=== PATIENT | female | born 1960 | race Caucasian/White ===

== ENCOUNTER 2016-11-15 19:08 | Emergency (ER) | payer SELFPAY ==
[2016-11-15 20:27] VITALS: BP 123/78
--- NOTE | 2016-11-15 20:58 | RAD ---
INDICATION: Right foot injury COMPARISON: None TECHNIQUE: AP, lateral, and oblique views were obtained. FINDINGS: There is no acute fracture or dislocation. There is no significant soft tissue swelling. There is a plantar calcaneal spur IMPRESSION: NO ACUTE BONY FINDINGS.
--- NOTE | 2016-11-15 20:59 | RAD ---
Amended report to correct indication. INDICATION: Right ankle injury COMPARISON: None TECHNIQUE: AP, lateral, and oblique views were obtained. FINDINGS: There is no acute fracture or dislocation. There is no significant soft tissue swelling. There is a plantar calcaneal spur. IMPRESSION: NO ACUTE BONY FINDINGS. MTDD
--- NOTE | 2016-11-15 21:36 | UC ---
Lower Extremity/Ankle HPI - HPI Summary HPI Summary: STEPPED ON PENCIL IN HALLWAY THIS AFTER NOON, ROLLED RIGHT ANKLE, SINCE INJURY PAIN IN FOOT AND ANKLE UNABLE TO BEAR WEIGHT WITHOUT PAIN. NO PREVIOUS INJURY - History of Current Complaint Chief Complaint: UCLowerExtremity Stated Complaint: RIGHT FOOT INJURY WC Time Seen by Provider: 11/15/16 20:10 Hx Obtained From: Patient, Family/[employer]ic [employer] Onset/Duration: Sudden Onset, Lasting Hours, Still Present, Worse Since - PROGRESSIVE SINCE INJURY Severity Initially: Mild Severity Currently: Moderate Aggravating Factor(s): Standing, Ambulation Able to Bear Weight: No - Risk Factors Gout Risk Factors: Negative DVT Risk Factors: Negative Septic Arthritis Risk Factor: Negative - Allergies/Home Medications Allergies/Adverse Reactions: Allergies Allergy/AdvReac Type Severity Reaction Status Date / Time Amoxicillin [From Augmentin] Allergy Unknown Verified 11/15/16 20:30 Reaction Details Cefaclor [From Ceclor] Allergy Unknown Verified 01/13/15 15:21 Reaction Details Ciprofloxacin [From Cipro] Allergy Unknown Verified 01/13/15 15:21 Reaction Details Clavulanic Acid Allergy Unknown Verified 11/15/16 20:30 [From Augmentin] Reaction Details Codeine Allergy Unknown Verified 11/15/16 20:30 Reaction Details Erythromycin Allergy Unknown Verified 11/15/16 20:30 Reaction Details Levofloxacin [From Levaquin] Allergy Unknown Verified 01/13/15 15:21 Reaction Details Moxifloxacin [From Avelox] Allergy Unknown Verified 01/13/15 15:21 Reaction Details Paroxetine [From Paxil] Allergy Unknown Verified 01/13/15 15:21 Reaction Details Penicillins Allergy Unknown Verified 01/13/15 15:21 Reaction Details Sulfa Antibiotics Allergy Unknown Verified 01/13/15 15:21 Reaction Details Home Medications: Home Medications Hydroxychloroquine TAB* [Plaquenil TAB*] 200 mg PO DAILY 11/15/16 [History Confirmed 11/15/16] Levothyroxine TAB* [Synthroid TAB*] 50 mcg PO DAILY 11/15/16 [History Confirmed 11/15/16] Ztfhxrloeds-[id number]-[id number] Bl [Uramit Mb 118 mg] 1 cap PO DAILY 11/15/16 [ History Confirmed 11/15/16] PMH/Surg Hx/FS Hx/Imm Hx Previously Healthy: Yes - Surgical History Surgical History: Yes Surgery Procedure, Year, and Place: Hysterectomy 2002. Umbilical hernia repair 1968. T&A 1969. 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 right shoulder repair. Bladder susp and repair - Family History Known Family History: Negative: Other - NO JOINT LAXITY - Social History Occupation: Employed Full-time Lives: With Family Alcohol Use: Occasionally Substance Use Type: None Smoking Status (MU): Never Smoked Tobacco Review of Systems Constitutional: Negative Skin: Negative Eyes: Negative ENT: Negative Respiratory: Negative Cardiovascular: Negative Gastrointestinal: Negative Genitourinary: Negative Motor: Negative Neurovascular: Negative Musculoskeletal: Arthralgia, Myalgia Neurological: Negative Psychological: Negative Is Patient Immunocompromised?: No All Other Systems Reviewed And Are Negative: Yes Physical Exam Triage Information Reviewed: Yes Appearance: Well-Appearing, No Pain Distress, Well-Nourished Vital Signs: Initial Vital Signs Temp 96.9 F 11/15/16 20:23 Pulse 89 11/15/16 20:23 Resp 16 11/15/16 20:23 BP 123/78 11/15/16 20:23 Pulse Ox 97 11/15/16 20:23 Vital Signs Reviewed: Yes Eye Exam: Normal ENT Exam: Normal ENT: Positive: Normal ENT inspection, Hearing grossly normal, TMs normal Dental Exam: Normal Neck exam: Normal Neck: Positive: Supple, Nontender Respiratory Exam: Normal Respiratory: Positive: Chest non-tender, Lungs clear, Normal breath sounds Cardiovascular Exam: Normal Cardiovascular: Positive: RRR, No Murmur, Pulses Normal, Brisk Capillary Refill Abdominal Exam: Normal Musculoskeletal: Positive: Strength Limited @ - RIGHT ANKLE FOOT, ROM Limited @ - RIGHT ANKLE FOOT, Edema @ - RIGHT LATERAL ANKLE Neurological Exam: Normal Psychological Exam: Normal Skin Exam: Normal Lower Extremity Course/Dx - Differential Dx/Diagnosis Differential Diagnosis/HQI/PQRI: Fracture (Closed), Sprain, Strain Provider Diagnoses: RIGHT ANKLE SPRAIN, RIGHT FOOT SPRAIN Discharge - Discharge Plan Condition: Stable Disposition: HOME Patient Education Materials: Ankle Sprain (ED), Foot Sprain (ED) Forms: *Work Release Referrals: [facility] [Outside] Danny Menchaca MD [Primary Care Provider] - Ash Knutson MD [Medical Doctor] - Additional Instructions: PHYSICAL THERAPY REFERRAL: You have been prescribed physical therapy. Treatments may include stretching, exercise, application of heat or cold, and other modalities. After an injury, PT can reduce swelling and pain. In recovery, PT is used to restore mobility and strength. Your specific treatment goals are: ___X__ Reduction of Swelling (EGS, US, ice as needed) ___X__ Pain Reduction (EGS, US, ice as needed) ___X__ TENS Pack Fitting and Instruction Wound Hydrotherapy ___X__ Preservation of Mobility ___X__ Synagogue of Mobility ___X__ Strength Synagogue ___X__ Work or Sports Hardening This instruction sheet also serves as your PHYSICAL THERAPY REFERRAL! Please take it with you to the therapist, so he/she will be aware of your diagnosis and treatment plan. You may see the physical therapist of your choice for these treatments, but may wish to check with your insurance to be sure the provider you select is covered. It's important to see the doctor to whom you have been referred for follow up.
== END 2016-11-15 22:00 | disposition home or self-care (01) ==
LOC: UCCORT 19:08
DX: S93.401A Sprain of unspecified ligament of right ankle, initial encounter (principal); S93.601A Unspecified sprain of right foot, initial encounter; X50.1XXA Overexertion from prolonged static or awkward postures, initial encounter; Y93.9 Activity, unspecified; Y92.9 Unspecified place or not applicable; Y99.0 Civilian activity done for income or pay; Z90.710 Acquired absence of both cervix and uterus; Z88.1 Allergy status to other antibiotic agents; Z88.5 Allergy status to narcotic agent; Z88.0 Allergy status to penicillin; Z88.7 Allergy status to serum and vaccine
CPT/HCPCS: 99213; G0463

== ENCOUNTER 2016-12-24 17:13 | Emergency (ER) | payer BC ==
[2016-12-24 18:21] VITALS: BP 131/85
--- NOTE | 2016-12-24 18:27 | UC ---
Laceration HPI - HPI Summary HPI Summary: 56 year old female presents with right little finger laceration secondary to a knife. - History Of Current Complaint Chief Complaint: UCLaceration Stated Complaint: LACERATION FINGER Time Seen by Provider: 12/24/16 18:24 Hx Obtained From: Patient Laceration Location: Hand - right little finger Mechanism Of Injury: Sharp Trauma Onset/Duration: Sudden Onset Severity: Moderate Pain Scale Used: 0-10 Numeric - 5 - Allergies/Home Medications Allergies/Adverse Reactions: Allergies Allergy/AdvReac Type Severity Reaction Status Date / Time Amoxicillin [From Augmentin] Allergy Unknown Verified 12/24/16 18:21 Reaction Details Cefaclor [From Ceclor] Allergy Unknown Verified 12/24/16 18:21 Reaction Details Ciprofloxacin [From Cipro] Allergy Unknown Verified 12/24/16 18:21 Reaction Details Clavulanic Acid Allergy Unknown Verified 12/24/16 18:21 [From Augmentin] Reaction Details Codeine Allergy Unknown Verified 12/24/16 18:21 Reaction Details Erythromycin Allergy Unknown Verified 12/24/16 18:21 Reaction Details Levofloxacin [From Levaquin] Allergy Unknown Verified 12/24/16 18:21 Reaction Details Moxifloxacin [From Avelox] Allergy Unknown Verified 12/24/16 18:21 Reaction Details Paroxetine [From Paxil] Allergy Unknown Verified 12/24/16 18:21 Reaction Details Penicillins Allergy Unknown Verified 12/24/16 18:21 Reaction Details Sulfa Antibiotics Allergy Unknown Verified 12/24/16 18:21 Reaction Details PMH/Surg Hx/FS Hx/Imm Hx Previously Healthy: Yes - Surgical History Surgical History: Yes Surgery Procedure, Year, and Place: Hysterectomy 2002. Umbilical hernia repair 1968. T&A 1969. 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 right shoulder repair. Bladder susp and repair - Family History Known Family History: Negative: Other - NO JOINT LAXITY - Social History Alcohol Use: Occasionally Substance Use Type: None Smoking Status (MU): Never Smoked Tobacco Review of Systems Constitutional: Negative Skin: Other - right little finger laceration Eyes: Negative ENT: Negative Respiratory: Negative Cardiovascular: Negative Gastrointestinal: Negative Genitourinary: Negative Motor: Negative Neurovascular: Negative Musculoskeletal: Negative Neurological: Negative Psychological: Negative All Other Systems Reviewed And Are Negative: Yes Physical Exam Triage Information Reviewed: Yes Vital Signs: Initial Vital Signs Temp 36.4 C 12/24/16 18:17 Pulse 86 12/24/16 18:17 Resp 16 12/24/16 18:17 BP 131/85 12/24/16 18:17 Pulse Ox 99 12/24/16 18:17 Eye Exam: Normal ENT Exam: Normal Dental Exam: Normal Neck exam: Normal Neck: Positive: 1 Respiratory Exam: Normal Cardiovascular Exam: Normal Abdominal Exam: Normal Musculoskeletal Exam: Normal Neurological Exam: Normal Psychological Exam: Normal Skin: Positive: Other - right little finger laceration Laceration Repair - Laceration Repair 1 Description: Linear Laceration Size After Repair: Length (cm) - 2.5 - 5 cm Type Injection: Local Anesthesia Used: 1.0% Lido Cleansing Completed Via Routine Prep: Yes Closure Material: Sutures - 5.0 ethilon Closure Method: Single Layer Suture Of: Skin Suture Type: Other - ethilon Laceration Course/Dx - Differential Dx - Laceration/Wound Provider Diagnoses: right little finger laceration Discharge - Discharge Plan Condition: Stable Disposition: HOME Prescriptions: DOXYcycline CAP(*) [DOXYcycline 100MG CAP(*)] 100 mg PO BID #14 cap Patient Education Materials: Laceration (ED) Referrals: Danny Menchaca MD [Primary Care Provider] -
[2016-12-24] MEDS ORDERED: Lidocaine 1% MPF* 2 ML VIAL INJ ONE (18:47)
[2016-12-24] MEDS ORDERED: Tetan/Diph/Pertus SYR(Tdap)* 0.5 ML SYR(BOOSTRIX) use SYR IM ONE (19:17)
== END 2016-12-24 19:26 | disposition home or self-care (01) ==
LOC: UCCORT 17:13
DX: S61.216A Laceration without foreign body of right little finger without damage to nail, initial encounter (principal); W26.0XXA Contact with knife, initial encounter; Z88.1 Allergy status to other antibiotic agents; Z88.5 Allergy status to narcotic agent; Z88.0 Allergy status to penicillin; Z88.8 Allergy status to other drugs, medicaments and biological substances; Z88.2 Allergy status to sulfonamides
CPT/HCPCS: 12001; 90471; 90715; 99212; G0463